=== PATIENT | female | born 1940 | race Caucasian/White ===

== ENCOUNTER → 2016-12-29 | Outpatient (CLI) | payer MEDICARE ==
[~2016-12-29] VITALS: Ht 177.8 cm; Wt 100.9 kg
[~2016-12-29] MED LIST: ALPHA LIPOIC A600 MG PO; ATHLETE'S FOOT1% TP; BIOTIN5000 MCG PO; CHONDROITIN SU250 M1 PO; COQ1050 MG PO; GLIPIZIDE AND M1 TA2 PO; GLUCOSAMINE PO; L-CARNITINE250 M1; LISINOPRIL AND1 TA2 PO; MAGNESIUM OXID500 M1 PO; MILK THISTLE1 POW; OLIVE LEAF EXT250 MG PO; OMEGA 3-6-9 11200 MG PO; ONE-A-DAY ESSE1 EACH PO; THE MEDICINE S300 M1 PO; ZYLOPRIM 100MG100 MG PO; [UNRECOGNIZED DRUG - OTHER]; [UNRECOGNIZED DRUG - OTHER] PO
[2016-12-29 10:19] VITALS: BP 112/64
== END ==
LOC: AMSURD 09:29
DX: E11.9 Type 2 diabetes mellitus without complications (principal); R20.2 Paresthesia of skin; E78.2 Mixed hyperlipidemia; K90.89 Other intestinal malabsorption

== ENCOUNTER → 2020-01-09 | Outpatient (CLI) | payer MEDICARE ==
[2016-12-29 10:19] VITALS: BP 112/64
== END ==
LOC: MAMMO 10:19
DX: Z13.820 Encounter for screening for osteoporosis (principal)

== ENCOUNTER → 2021-07-29 | Outpatient (CLI) | payer MEDICARE ==
[2021-07-29 07:34] LABS: POTASSIUM 3.9 mmol/L (3.5-5.1)
[2021-07-29 07:35] LABS: ALBUMIN 4.3 g/dL (3.4-4.8)
[2021-07-29 07:36] LABS: CALCIUM 9.8 mg/dL (8.3-10.5)
[2021-07-29 07:37] LABS: BASO # 0.05 K/mm3 (0.02-0.10); EOS # 0.44 K/mm3 (0.04-0.40); HEMOGLOBIN 13.4 g/dL (12.5-16.0); LYMPH# 3.82 K/mm3 (1.50-4.00); MEAN CELL VOLUME 89 fl (78-100); MEAN CORPUSCULAR HEMOGLOBIN 29 pg (27-31); MEAN CORPUSCULAR HGB CONC 33 g/dL (33-37); MEAN PLATELET VOLUME 10.3 fl (7.4-10.4); MONO # 0.79 K/mm3 (0.20-0.80); NEU # 5.98 K/mm3 (1.40-6.50); PLATELET COUNT 329 K/mm3 (130-400); RED CELL DISTRIBUTION WIDTH 13.2 % (11.5-14.5); TOTAL PROTEIN 7.3 g/dL (6.2-8.1); WHITE BLOOD COUNT 11.1 K/mm3 (4.8-10.8)
[2021-07-29 07:39] LABS: TOTAL BILIRUBIN 0.7 mg/dL (0.2-1.2)
== END ==
LOC: LAB 06:57
PROVIDERS: Family Medicine
DX: E11.9 Type 2 diabetes mellitus without complications (principal); E78.5 Hyperlipidemia, unspecified; E55.9 Vitamin D deficiency, unspecified

== ENCOUNTER → 2022-01-27 | Outpatient (CLI) | payer MEDICARE ==
[2022-01-27 08:34] LABS: BASO # 0.05 K/mm3 (0.02-0.10); EOS # 0.58 K/mm3 (0.04-0.40); EOS % 4.8 % (1.0-5.0); HEMATOCRIT 40.3 % (37.0-47.0); HEMOGLOBIN 13.4 g/dL (12.5-16.0); LYMPH# 3.35 K/mm3 (1.50-4.00); MEAN CELL VOLUME 88 fl (78-100); MEAN CORPUSCULAR HEMOGLOBIN 29 pg (27-31); MEAN CORPUSCULAR HGB CONC 33 g/dL (33-37); MEAN PLATELET VOLUME 10.5 fl (7.4-10.4); MONO # 0.82 K/mm3 (0.20-0.80); NEU # 7.13 K/mm3 (1.40-6.50); PLATELET COUNT 275 K/mm3 (130-400); RED BLOOD COUNT 4.59 M/mm3 (4.10-5.30); RED CELL DISTRIBUTION WIDTH 13.8 % (11.5-14.5)
[2022-01-27 08:44] LABS: ALBUMIN 4.3 g/dL (3.4-4.8); POTASSIUM 3.5 mmol/L (3.5-5.1)
[2022-01-27 09:06] LABS: CALCIUM 9.8 mg/dL (8.3-10.5)
[2022-01-27 09:08] LABS: TOTAL PROTEIN 7.2 g/dL (6.2-8.1)
[2022-01-27 09:09] LABS: TOTAL BILIRUBIN 0.8 mg/dL (0.2-1.2)
[2022-01-28 14:27] LABS: MAGNESIUM 1.75 mg/dL (1.60-2.60)
== END ==
LOC: LAB 08:09
PROVIDERS: Family Medicine
DX: E11.9 Type 2 diabetes mellitus without complications (principal); M19.90 Unspecified osteoarthritis, unspecified site; I10 Essential (primary) hypertension; E66.9 Obesity, unspecified; M10.9 Gout, unspecified; E78.5 Hyperlipidemia, unspecified; E55.9 Vitamin D deficiency, unspecified

== ENCOUNTER 2022-05-16 08:00 | Outpatient (RCR) | payer MEDICARE | END 2022-06-13 | disposition still patient (30) | LOC: PT | DX: M19.90 Unspecified osteoarthritis, unspecified site (principal) ==

== ENCOUNTER → 2022-06-22 | Outpatient (CLI) | payer MEDICARE | LOC: RAD 08:45 | DX: M25.551 Pain in right hip (principal) ==

== ENCOUNTER → 2023-05-29 | Outpatient (CLI) | payer MEDICARE | LOC: LAB 08:38 | DX: E11.9 Type 2 diabetes mellitus without complications (principal); E78.5 Hyperlipidemia, unspecified ==

== ENCOUNTER → 2023-11-06 | Outpatient (CLI) | payer MEDICARE ==
[2023-11-06 07:15] LABS: BASO # 0.03 K/mm3 (0.02-0.10); EOS # 0.38 K/mm3 (0.04-0.40); EOS % 3.8 % (1.0-5.0); HEMATOCRIT 41.1 % (37.0-47.0); HEMOGLOBIN 13.3 g/dL (12.5-16.0); LYMPH# 3.03 K/mm3 (1.50-4.00); MEAN CELL VOLUME 87 fl (78-100); MEAN CORPUSCULAR HEMOGLOBIN 28 pg (27-31); MEAN CORPUSCULAR HGB CONC 32 g/dL (33-37); MEAN PLATELET VOLUME 9.6 fl (7.4-10.4); NEU # 5.86 K/mm3 (1.40-6.50); PLATELET COUNT 326 K/mm3 (130-400); RED BLOOD COUNT 4.73 M/mm3 (4.10-5.30); RED CELL DISTRIBUTION WIDTH 13.3 % (11.5-14.5); WHITE BLOOD COUNT 10.1 K/mm3 (4.8-10.8)
[2023-11-06 07:20] LABS: ALBUMIN 4.2 g/dL (3.4-4.8)
[2023-11-06 07:22] LABS: TOTAL PROTEIN 7.1 g/dL (6.2-8.1)
[2023-11-06 07:24] LABS: TOTAL BILIRUBIN 0.6 mg/dL (0.2-1.2)
== END ==
LOC: LAB 07:02
PROVIDERS: Nurse Practitioner
DX: E11.9 Type 2 diabetes mellitus without complications (principal); E78.5 Hyperlipidemia, unspecified

== ENCOUNTER → 2023-12-21 | Outpatient (CLI) | payer MEDICARE | LOC: AMSURD 10:20 | DX: M86.8X7 Other osteomyelitis, ankle and foot (principal) ==

== ENCOUNTER → 2024-01-03 | Outpatient (CLI) | payer MEDICARE | LOC: RAD 01-02 09:31 | DX: L97.509 Non-pressure chronic ulcer of other part of unspecified foot with unspecified severity (principal) ==

== ENCOUNTER → 2024-01-05 | Outpatient (CLI) | payer MEDICARE ==
[2024-02-26 11:56] LABS: ALBUMIN 4.4 g/dL (3.4-4.8); CALCIUM 9.9 mg/dL (8.3-10.5); TOTAL BILIRUBIN 0.5 mg/dL (0.2-1.2); TOTAL PROTEIN 7.2 g/dL (6.2-8.1)
[2024-02-26 12:10] LABS: BASO # 0.02 K/mm3 (0.02-0.10); EOS # 0.36 K/mm3 (0.04-0.40); EOS % 3.6 % (1.0-5.0); HEMATOCRIT 40.9 % (37.0-47.0); HEMOGLOBIN 13.3 g/dL (12.5-16.0); LYMPH# 3.24 K/mm3 (1.50-4.00); MEAN CELL VOLUME 88 fl (78-100); MEAN CORPUSCULAR HEMOGLOBIN 29 pg (27-31); MEAN CORPUSCULAR HGB CONC 33 g/dL (33-37); MEAN PLATELET VOLUME 9.9 fl (7.4-10.4); MONO # 0.88 K/mm3 (0.20-0.80); NEU # 5.45 K/mm3 (1.40-6.50); PLATELET COUNT 326 K/mm3 (130-400); RED BLOOD COUNT 4.67 M/mm3 (4.10-5.30); RED CELL DISTRIBUTION WIDTH 13.1 % (11.5-14.5)
== END ==
LOC: LAB 12:30
PROVIDERS: Nurse Practitioner
DX: M86.9 Osteomyelitis, unspecified (principal)

== ENCOUNTER → 2024-01-08 | Outpatient (CLI) | payer MEDICARE | LOC: LAB 07:28 | DX: M86.8X7 Other osteomyelitis, ankle and foot (principal) ==

== ENCOUNTER → 2024-01-12 | Outpatient (CLI) | payer MEDICARE ==
[~2024-01-12] MED LIST changes: +Gadoterate 20 ML VIAL IV ONE; +NS 100 ML IV ONE
== END ==
LOC: RAD 09:08
DX: M86.9 Osteomyelitis, unspecified (principal)
CPT/HCPCS: A9575

== ENCOUNTER → 2024-01-12 | Outpatient (CLI) | payer MEDICARE ==
[~2024-01-12] MED LIST changes: -Gadoterate 20 ML VIAL IV ONE; -NS 100 ML IV ONE
== END ==
LOC: LAB 08:00
DX: M86.8X7 Other osteomyelitis, ankle and foot (principal)

== ENCOUNTER → 2024-01-24 | Outpatient (CLI) | payer MEDICARE | LOC: LAB 18:53 | DX: M86.9 Osteomyelitis, unspecified (principal) ==

== ENCOUNTER → 2024-01-26 | Outpatient (CLI) | payer MEDICARE | LOC: LAB 07:55 | DX: M86.172 Other acute osteomyelitis, left ankle and foot (principal) ==

== ENCOUNTER → 2024-02-02 | Outpatient (CLI) | payer MEDICARE | LOC: LAB 07:24 | DX: M86.8X7 Other osteomyelitis, ankle and foot (principal) ==

== ENCOUNTER → 2024-02-09 | Outpatient (CLI) | payer MEDICARE | LOC: LAB 07:55 | DX: E11.9 Type 2 diabetes mellitus without complications (principal); E55.9 Vitamin D deficiency, unspecified ==

== ENCOUNTER → 2024-05-10 | Outpatient (CLI) | payer MEDICARE ==
[2024-05-10 09:45] LABS: ALBUMIN 4.6 g/dL (3.4-4.8)
[2024-05-10 09:47] LABS: CALCIUM 10.2 mg/dL (8.3-10.5)
[2024-05-10 09:48] LABS: TOTAL PROTEIN 7.4 g/dL (6.2-8.1)
[2024-05-10 09:50] LABS: TOTAL BILIRUBIN 0.6 mg/dL (0.2-1.2)
== END ==
LOC: LAB 09:21
PROVIDERS: Nurse Practitioner
DX: I10 Essential (primary) hypertension (principal); E11.9 Type 2 diabetes mellitus without complications

== ENCOUNTER → 2024-06-06 | Outpatient (CLI) | payer MEDICARE ==
[2024-06-06 15:22] LABS: BASO # 0.04 K/mm3 (0.02-0.10); EOS # 0.39 K/mm3 (0.04-0.40); EOS % 3.2 % (1.0-5.0); HEMATOCRIT 40.9 % (37.0-47.0); HEMOGLOBIN 13.5 g/dL (12.5-16.0); LYMPH# 3.35 K/mm3 (1.50-4.00); MEAN CELL VOLUME 88 fl (78-100); MEAN CORPUSCULAR HEMOGLOBIN 29 pg (27-31); MEAN CORPUSCULAR HGB CONC 33 g/dL (33-37); MONO # 0.78 K/mm3 (0.20-0.80); NEU # 7.66 K/mm3 (1.40-6.50); PLATELET COUNT 290 K/mm3 (130-400); RED BLOOD COUNT 4.67 M/mm3 (4.10-5.30); RED CELL DISTRIBUTION WIDTH 13.1 % (11.5-14.5); WHITE BLOOD COUNT 12.3 K/mm3 (4.8-10.8)
[2024-06-06 15:29] LABS: ALBUMIN 4.4 g/dL (3.4-4.8)
[2024-06-06 15:30] LABS: CALCIUM 10.1 mg/dL (8.3-10.5)
[2024-06-06 15:31] LABS: TOTAL PROTEIN 7.3 g/dL (6.2-8.1)
[2024-06-06 15:33] LABS: TOTAL BILIRUBIN 0.4 mg/dL (0.2-1.2)
== END ==
LOC: LAB 15:07
PROVIDERS: Nurse Practitioner
DX: S61.201A Unspecified open wound of left index finger without damage to nail, initial encounter (principal); X58.XXXA Exposure to other specified factors, initial encounter

== ENCOUNTER → 2024-06-12 | Outpatient (CLI) | payer MEDICARE ==
[~2024-06-12] VITALS: Ht 177.8 cm; Wt 100.9 kg
[~2024-06-12] MED LIST changes: +CEPHALEXIN500 M1 PO; +TRULICITY4.5 MG/0.5 SQ
[2024-06-12 13:20] VITALS: BP 128/80
== END ==
LOC: AMSURD 12:54
DX: S61.201A Unspecified open wound of left index finger without damage to nail, initial encounter (principal)
CPT/HCPCS: 18895; A6021

== ENCOUNTER 2024-07-31 12:46 | Emergency (ER) | payer MEDICARE ==
[~2024-07-31] VITALS: Ht 182.9 cm; Wt 88.7 kg
[2024-07-31] MEDS ORDERED: LOSARTAN POTASS1 TA2 (14:52)
[2024-07-31 16:01] VITALS: BP 140/80
[2024-08-01] MEDS ORDERED: GLUCOPHAGE PO (16:19)
[2024-08-01] MEDS ORDERED: COZAAR100 MG PO (16:41)
[2024-08-01] MEDS ORDERED: HCTZ 25MG25 MG PO (16:42)
== END 2024-07-31 15:58 | disposition home or self-care (01) ==
LOC: ED 12:46
DX: S00.81XA Abrasion of other part of head, initial encounter (principal); M79.642 Pain in left hand; M25.562 Pain in left knee; M25.512 Pain in left shoulder; W19.XXXA Unspecified fall, initial encounter; W22.8XXA Striking against or struck by other objects, initial encounter; Y92.481 Parking lot as the place of occurrence of the external cause

== ENCOUNTER 2024-08-01 16:02 | Inpatient (IN) | payer MEDICARE ==
[~2024-08-01] VITALS: Ht 182.9 cm; Wt 89.4 kg
[~2024-08-01 16:02] MED LIST changes: +LOSARTAN POTASS1 TA2
[2024-08-01] MEDS ORDERED: GLUCOPHAGE PO (16:19)
[2024-08-01 16:39] VITALS: BP 156/68
[2024-08-01] MEDS ORDERED: COZAAR100 MG PO (16:41)
[2024-08-01] MEDS ORDERED: HCTZ 25MG25 MG PO (16:42)
[2024-08-01] MEDS ORDERED: NS & 20mEq KCl 1,000 ML IV SCH (16:45)
--- NOTE | 2024-08-01 17:21 | NUR ---
PATIENT ADMITTED FROM ED FOR RECURRING FALLS. DENIES ANY CURRENT PAIN. A&OX4. MULTIPLE ABRASIONS FROM RECENT FALLS, SEE ASSESSMENT. BLOOD GLUCOSE 229. X1 ASSIST WITH GAIT BELT AND WHEELED WALKER, MULTIPLE CUES NEEDED TO STAND PROPERLY WITH WALKER. SHUFFLED GAIT. PLAN OF CARE REVIEWED WITH PATIENT. PATIENT REPORTS TAKING TRULICITY ON WEDNESDAYS BUT MISSED DOSE YESTERDAY. POOR HISTORIAN, UNABLE TO PROVIDE ACCURATE HOME MEDICATION LIST. PATIENT SITTING IN RECLINER EATING DINNER, LUE ELEVATED. CHAIR ALARMED, CALL LIGHT WITHIN REACH.
--- NOTE | 2024-08-01 18:41 | NUR ---
REPORT TO JOBY ROSE.
[2024-08-01 19:56] VITALS: BP 134/76
[2024-08-01] MEDS ORDERED: Acetaminophen 325 MG TAB PO PRN (20:30)
--- NOTE | 2024-08-01 20:30 | NUR ---
Patient resting in bed. Alert and oriented. Tylenol reviewed and given for LUE and hand pain. Remains swollen and bruised. Cap refill < 3 and pulse strone LUE. Elevated on pillow.
[2024-08-01 23:37] VITALS: BP 117/67
[2024-08-02 02:46] VITALS: BP 116/74
[2024-08-02] MEDS ORDERED: NS 1,000 ML IV SCH (05:00)
--- NOTE | 2024-08-02 07:00 | NUR ---
RESUMED CARE FROM JOBY ROSE.
[2024-08-02 07:10] VITALS: BP 138/85
[2024-08-02] MEDS ORDERED: metFORMIN 500 MG TAB PO SCH (07:30)
[2024-08-02] MEDS ORDERED: Insulin Lispro (HumaLOG) SQ SCH (08:00)
[2024-08-02 08:53] LABS: ALBUMIN 3.7 g/dL (3.4-4.8)
[2024-08-02 08:55] LABS: CALCIUM 8.9 mg/dL (8.3-10.5)
[2024-08-02 08:56] LABS: TOTAL PROTEIN 6.2 g/dL (6.2-8.1)
[2024-08-02 08:58] LABS: TOTAL BILIRUBIN 1.3 mg/dL (0.2-1.2)
[2024-08-02 08:59] LABS: BASO # 0.01 K/mm3 (0.02-0.10); EOS # 0.05 K/mm3 (0.04-0.40); EOS % 0.3 % (1.0-5.0); HEMATOCRIT 34.8 % (37.0-47.0); HEMOGLOBIN 11.5 g/dL (12.5-16.0); LYMPH# 1.93 K/mm3 (1.50-4.00); MEAN CELL VOLUME 87 fl (78-100); MEAN CORPUSCULAR HEMOGLOBIN 29 pg (27-31); MEAN CORPUSCULAR HGB CONC 33 g/dL (33-37); MEAN PLATELET VOLUME 10.5 fl (7.4-10.4); MONO # 1.24 K/mm3 (0.20-0.80); NEU # 11.09 K/mm3 (1.40-6.50); PLATELET COUNT 223 K/mm3 (130-400); RED BLOOD COUNT 3.98 M/mm3 (4.10-5.30); RED CELL DISTRIBUTION WIDTH 13.2 % (11.5-14.5); WHITE BLOOD COUNT 14.4 K/mm3 (4.8-10.8)
[2024-08-02] MEDS ORDERED: cefTRIAXone 1 G in Water For Injection,Sterile 10 ML IV SCH (09:00)
[2024-08-02] MEDS ORDERED: Pantoprazole 40 MG in NS 10 ML IV SCH (09:00)
[2024-08-02 11:14] VITALS: BP 175/81
--- NOTE | 2024-08-02 13:42 | NUR ---
Spoke with Aubree and her son Luis. They are agreeing to stay until medically ready for discharge. Aubree does not want to stay in [facility]. She wants to go home and stay with her son for a while. Her son, Luis would like home health. Aubree states she would like [facility]. Face to Face, Order and [facility] faxed to [facility] . Gave [facility] information to Luis
[2024-08-02 16:09] VITALS: BP 143/72
--- NOTE | 2024-08-02 16:15 | NUR ---
PATIENT RESTING IN BED, LEANING TOWARDS RIGHT SIDE WITH SON AT BEDSIDE. THIS RN ASSISTED PATIENT SUPINE AND PLACED PILLOW ON RIGHT SIDE. PATIENT FELT WARM, TEMPERATURE TAKEN 99.0. TYLENOL PROVIDED AND DR. EDWARDS AND YANETH ANDREWS NOTIFIED OF PATIENT STATUS. NEW ORDERS OBTAINED.
[2024-08-02 16:26] LABS: BASO # 0.01 K/mm3 (0.02-0.10); EOS # 0.01 K/mm3 (0.04-0.40); EOS % 0.1 % (1.0-5.0); HEMATOCRIT 33.4 % (37.0-47.0); LYMPH# 1.72 K/mm3 (1.50-4.00); MEAN CELL VOLUME 88 fl (78-100); MEAN CORPUSCULAR HEMOGLOBIN 29 pg (27-31); MEAN CORPUSCULAR HGB CONC 33 g/dL (33-37); MEAN PLATELET VOLUME 10.1 fl (7.4-10.4); PLATELET COUNT 221 K/mm3 (130-400); RED BLOOD COUNT 3.79 M/mm3 (4.10-5.30); RED CELL DISTRIBUTION WIDTH 13.1 % (11.5-14.5); WHITE BLOOD COUNT 16.8 K/mm3 (4.8-10.8)
[2024-08-02 16:31] LABS: ALBUMIN 3.5 g/dL (3.4-4.8)
[2024-08-02 16:33] LABS: CALCIUM 8.6 mg/dL (8.3-10.5)
[2024-08-02 16:34] LABS: TOTAL PROTEIN 5.9 g/dL (6.2-8.1)
[2024-08-02] MEDS ORDERED: Potassium Chloride 100 ML IV SCH (16:45)
[2024-08-02] MEDS ORDERED: Piperacillin/Tazobactam Sodium 3.375 GM in NS 100 ML IV SCH (17:15)
[2024-08-02] MEDS ORDERED: Vancomycin 1 G in NS 250 ML IV SCH ×2 (17:15→17:30)
--- NOTE | 2024-08-02 18:49 | NUR ---
REPORT TO JOBY ROSE.
[2024-08-02 19:00] VITALS: BP 167/90
--- NOTE | 2024-08-02 20:00 | NUR ---
Patient resting in bed and IV LAC retaped for comfort. Potassium infusing without problems. LUE elevated on pillow.
[2024-08-02 23:12] VITALS: BP 150/89
[2024-08-03 03:29] VITALS: BP 135/77
--- NOTE | 2024-08-03 06:07 | NUR ---
Reports yes to sleeping this noc.
[2024-08-03 07:15] VITALS: BP 159/77
[2024-08-03 07:37] LABS: BASO # 0.02 K/mm3 (0.02-0.10); EOS # 0.09 K/mm3 (0.04-0.40); EOS % 0.6 % (1.0-5.0); HEMATOCRIT 32.2 % (37.0-47.0); HEMOGLOBIN 11.2 g/dL (12.5-16.0); MEAN CELL VOLUME 88 fl (78-100); MEAN CORPUSCULAR HEMOGLOBIN 31 pg (27-31); MEAN CORPUSCULAR HGB CONC 35 g/dL (33-37); MEAN PLATELET VOLUME 10.2 fl (7.4-10.4); MONO # 1.34 K/mm3 (0.20-0.80); PLATELET COUNT 199 K/mm3 (130-400); RED BLOOD COUNT 3.67 M/mm3 (4.10-5.30); RED CELL DISTRIBUTION WIDTH 13.1 % (11.5-14.5); WHITE BLOOD COUNT 15.1 K/mm3 (4.8-10.8)
[2024-08-03 07:45] LABS: ALBUMIN 3.3 g/dL (3.4-4.8)
[2024-08-03 07:47] LABS: CALCIUM 8.8 mg/dL (8.3-10.5)
[2024-08-03 07:48] LABS: TOTAL PROTEIN 5.9 g/dL (6.2-8.1)
[2024-08-03 07:50] LABS: TOTAL BILIRUBIN 1.4 mg/dL (0.2-1.2)
[2024-08-03 11:13] VITALS: BP 154/75
[2024-08-03] MEDS ORDERED: Potassium Bicarbonate/Citrate 20 MEQ Effervescent TAB PO SCH (11:47)
[2024-08-03] MEDS ORDERED: HYDROcodone/Acetaminophen 7.5-325 MG TAB PO PRN (12:00)
--- NOTE | 2024-08-03 13:51 | NUR ---
Dr. Dong at bedside.
[2024-08-03 14:51] VITALS: BP 148/78
--- NOTE | 2024-08-03 19:17 | NUR ---
RECEIVED REPORT FROM JOBY MICHELLE
[2024-08-03 19:54] VITALS: BP 136/79
--- NOTE | 2024-08-03 23:00 | NUR ---
PATIENT RESTING IN BED. WAKES EASILY TO VERBAL STIMULI. DENIES PAIN OR DISCOMFORT. CALL LIGHT IN REACH. BED ALARM ON
[2024-08-03 23:18] VITALS: BP 149/78
--- NOTE | 2024-08-04 03:23 | NUR ---
PATIENT RESTING QUIETLY IN BED. BREATHING UNLABORED ON RA. LEFT ARM ELEVATED ON PILLOWS. CALL LIGHT IN REACH. BED ALARM ON
[2024-08-04 03:30] VITALS: BP 154/80
--- NOTE | 2024-08-04 05:33 | NUR ---
PATIENT WAKES EASILY WITH VERBAL STIMULI. ATB INFUSED PER ORDERS. IV POSITIONAL BUT FLUSHES AND RUNS. NO S/S INFILTRATION. LEFT ARM CONTINUES TO BE SWOLLEN, ELEVATED ON PILLOWS, DID NOT USE IV IN LEFT ARM. PATIENT DENIES PAIN OR DISCOMFORT. PUREWICK TO SUCTION DRAINING CLEAR YELLOW URINE. CALL LIGHT IN REACH. BED ALARM ON
--- NOTE | 2024-08-04 07:00 | NUR ---
REPORT RECEIVED FROM JOBY RASHEED
[2024-08-04 07:32] VITALS: BP 152/81
--- NOTE | 2024-08-04 07:35 | NUR ---
PATIENT RESTING IN BED WITH EYES OPEN, TV ON. PATIENT IS A&Ox4, PLEASENT, FORGETFUL. PATIENT STATES PAIN TO LUE 5/10; SWELLING NOTED TO LUE, BRUISING TO FINGERS, BACK OF HAND AND PALM NOTED TO L HAND. BRUSING NOTED TO BILAT KNEES, PATIENT STATES FROM FALLING. PATIENT WASHED FACE. ASSISTED TO CHIAR WITH WALKER AND 2x ASSIT. PATIENT DENIES OTHER NEEDS OR COMPLAINTS AT THIS TIME. CHAIR ALARMED, CALL LIGHT WITHIN REACH.
--- NOTE | 2024-08-04 10:50 | NUR ---
PATIENT C/O OF PAIN TO IV SITE IN LEFT AC. INT REMOVED AT THIS TIME DUE TO PAIN.
[2024-08-04 11:05] VITALS: BP 146/78
--- NOTE | 2024-08-04 11:35 | NUR ---
PROVIDER INTO SEE PATIENT. NEW ORDERS RECEIVED
--- NOTE | 2024-08-04 12:45 | NUR ---
SWELLING TO LEFT HAND HAS DECREASED. PATIENT STATES PAIN HAS IMPROVED TO LUE. PATIENT CONTIUES TO KEEP LUE ELEVATED ON PILLOW. DENIES OTHER NEEDS OR COMPLAINTS AT THIS TIME. CHAIR ALARM ON, CALL LIGHT WITHIN REACH
--- NOTE | 2024-08-04 13:09 | NUR ---
THIS RN TOOK REPORT FROM JOBY SIMS. PTS FAMILY PRESENT. PTS FAMILY LEFT THE FACILITY AT 1245. THIS NURSE ASKED PT ABOUT HER PAIN LEVEL. PT HAD BEEN RESTING WITH EYES CLOSED. SHE DENIES ANY PAIN AT THIS TIME.
[2024-08-04 14:49] VITALS: BP 160/90
[2024-08-04 19:00] VITALS: BP 148/74
--- NOTE | 2024-08-04 19:08 | NUR ---
REPORT GIVEN TO JOBY RASHEED
--- NOTE | 2024-08-04 19:17 | NUR ---
RESUMED CARE FROM PRECIA, RN
[2024-08-04 23:00] VITALS: BP 146/71
[2024-08-04] MEDS ORDERED: Ciprofloxacin 250 MG TAB PO ONE (23:45)
[2024-08-05 02:58] VITALS: BP 143/73
--- NOTE | 2024-08-05 05:35 | NUR ---
PATIENT A&O X 3. TRANSFERS WITH 1-2 ASSIST, DEPENDS HEAVILY ON STAFF ASSIST. OFFERED MULTIPLE TIMES TO WALK IN HALLS OR TO AND FROM TOILET, AND REFUSED. LEFT ARM WITH LESS SWELLILNG, PATIENT DENIES PAIN OR DISCOMFORT. USES CALL LIGHT APPROPRIATLY. BED ALARM ON.
[2024-08-05 07:24] VITALS: BP 162/84
[2024-08-05] MEDS ORDERED: Ciprofloxacin 250 MG TAB PO SCH (09:00)
[2024-08-05 11:12] VITALS: BP 156/84
[2024-08-05 15:28] VITALS: BP 156/82
--- NOTE | 2024-08-05 17:44 | NUR ---
PATIENT HAS BEEN PLEASENT AND COOPERATIVE THIS SHIFT. SHE IS BEING DISCHARGED 08/06/24. HER LEFT ARM IS SWOLLEN AND WARM. DR. EDWARDS WENT AND SPOKE WITH PATIENT AND STATES THAT HER ARM LOOKS BETTER THAN IT DID WHEN SHE CAME IN. PATIENT DENIES PAIN AND IS ABLE TO MOVE ARM WITHOUT DIFFICULTY. SHE REFUSED HER LOVENOX THIS AM STATING SHE DID NOT WANT ANY BLOOD THINNER. THERE IS A WHITE THICK COATING ON HER UVULA. AWARE,WILL TREAT AND FOLLOW UP OUTPATIENT. PATIENT IS SITTING IN RECLINER WATCHING TV AT THIS TIME.
[2024-08-05 19:00] VITALS: BP 156/82
--- NOTE | 2024-08-05 19:50 | NUR ---
PT A&OX4. AMBULATES WITH WALKER X2. LUNGS CLEAR. ABD SOFT AND NON TENDER. DENIES PAIN. SWELLING NOTED TO LEFT ARM AND RIGHT HAND. COMPRESSION GLOVE ON TO LEFT HAND.
[2024-08-05 22:38] VITALS: BP 155/77
[2024-08-06 02:56] VITALS: BP 144/74
[2024-08-06 07:23] LABS: BASO # 0.03 K/mm3 (0.02-0.10); EOS # 0.33 K/mm3 (0.04-0.40); EOS % 2.7 % (1.0-5.0); HEMATOCRIT 33.8 % (37.0-47.0); HEMOGLOBIN 11.1 g/dL (12.5-16.0); LYMPH# 1.79 K/mm3 (1.50-4.00); MEAN CELL VOLUME 87 fl (78-100); MEAN CORPUSCULAR HEMOGLOBIN 29 pg (27-31); MEAN CORPUSCULAR HGB CONC 33 g/dL (33-37); MEAN PLATELET VOLUME 9.7 fl (7.4-10.4); MONO # 1.29 K/mm3 (0.20-0.80); NEU # 8.75 K/mm3 (1.40-6.50); RED BLOOD COUNT 3.88 M/mm3 (4.10-5.30); RED CELL DISTRIBUTION WIDTH 12.8 % (11.5-14.5); WHITE BLOOD COUNT 12.2 K/mm3 (4.8-10.8)
[2024-08-06 07:28] LABS: PLATELET COUNT 310 K/mm3 (130-400)
[2024-08-06 07:29] LABS: ALBUMIN 3.4 g/dL (3.4-4.8)
[2024-08-06 07:30] LABS: CALCIUM 9.3 mg/dL (8.3-10.5)
[2024-08-06 07:32] LABS: TOTAL PROTEIN 6.4 g/dL (6.2-8.1)
[2024-08-06 07:33] LABS: TOTAL BILIRUBIN 0.8 mg/dL (0.2-1.2)
[2024-08-06 08:21] VITALS: BP 165/76
[2024-08-06] MEDS ORDERED: FLUCONAZOLE50 MG PO (08:33)
[2024-08-06] MEDS ORDERED: CIPRO250 M1 PO (08:34)
--- NOTE | 2024-08-06 10:05 | NUR ---
0955 PT DISCHARGED. D/C INSTRUCTIONS REVIEWED WITH THE PT AND THE SON, BOTH VERBALIZE UNDERSTANDING. PT WALKED OUT WITH STANDBY ASSIST USING HER WALKER. PT ASSISTED INTO VEHICLE WITHOUT DIFFICULTY.
== END 2024-08-06 09:55 | disposition home or self-care (01) | DRG 690 ==
LOC: MED/SURG 16:02
PROVIDERS: Family Medicine; Nurse Practitioner; ADMIT Family Medicine
DX: N39.0 Urinary tract infection, site not specified (principal); M62.82 Rhabdomyolysis; S60.222A Contusion of left hand, initial encounter; W18.30XA Fall on same level, unspecified, initial encounter; E11.42 Type 2 diabetes mellitus with diabetic polyneuropathy; I10 Essential (primary) hypertension; E55.9 Vitamin D deficiency, unspecified; M10.9 Gout, unspecified; R29.6 Repeated falls; Z79.84 Long term (current) use of oral hypoglycemic drugs; E87.6 Hypokalemia
CPT/HCPCS: J0696; J1650; J1815; J2470; J2543; J3370; J3480; J7030; J7050

== ENCOUNTER → 2024-08-21 | Outpatient (CLI) | payer MEDICARE ==
[~2024-08-21] MED LIST changes: +CIPRO250 M1 PO; +COZAAR100 MG PO; +FLUCONAZOLE50 MG PO; +GLUCOPHAGE PO; +HCTZ 25MG25 MG PO
[2024-08-21 13:00] LABS: URINE WBC 0 /hpf (0-3)
[2024-08-21 13:29] LABS: BASO # 0.02 K/mm3 (0.02-0.10); EOS # 0.11 K/mm3 (0.04-0.40); EOS % 0.6 % (1.0-5.0); HEMOGLOBIN 12.4 g/dL (12.5-16.0); MEAN CELL VOLUME 87 fl (78-100); MEAN CORPUSCULAR HEMOGLOBIN 28 pg (27-31); MEAN CORPUSCULAR HGB CONC 32 g/dL (33-37); MEAN PLATELET VOLUME 9.6 fl (7.4-10.4); MONO # 1.44 K/mm3 (0.20-0.80); NEU # 14.05 K/mm3 (1.40-6.50); PLATELET COUNT 617 K/mm3 (130-400); RED BLOOD COUNT 4.48 M/mm3 (4.10-5.30); WHITE BLOOD COUNT 18.5 K/mm3 (4.8-10.8)
[2024-08-21 13:33] LABS: ALBUMIN 4.2 g/dL (3.4-4.8)
[2024-08-21 13:34] LABS: CALCIUM 10.5 mg/dL (8.3-10.5)
[2024-08-21 13:35] LABS: TOTAL PROTEIN 7.7 g/dL (6.2-8.1)
[2024-08-21 13:37] LABS: TOTAL BILIRUBIN 0.9 mg/dL (0.2-1.2)
[2024-08-21 14:05] LABS: URINE APPEARANCE CLEAR (CLEAR); URINE COLOR YELLOW (YELLOW)
[2024-08-21 14:06] LABS: PH-URINE 5.5 (5.0 - 8.0); URINE BILIRUBIN NEGATIVE (NEGATIVE); URINE BLOOD NEGATIVE (NEGATIVE); URINE GLUCOSE NEGATIVE (NEGATIVE); URINE KETONE TRACE (NEGATIVE); URINE LEUKOCYTE ESTERASE NEGATIVE (NEGATIVE); URINE MUCUS PRESENT (NOT PRESENT); URINE NITRATE NEGATIVE (NEGATIVE); URINE PROTEIN(semi-quant) 1+ (NEGATIVE)
== END ==
LOC: LAB 12:30
PROVIDERS: Nurse Practitioner
DX: N39.0 Urinary tract infection, site not specified (principal); S91.001D Unspecified open wound, right ankle, subsequent encounter; R09.89 Other specified symptoms and signs involving the circulatory and respiratory systems; W19.XXXD Unspecified fall, subsequent encounter

== ENCOUNTER → 2024-08-30 | Outpatient (CLI) | payer MEDICARE ==
[~2024-08-30] VITALS: Ht 182.9 cm; Wt 89.4 kg
[~2024-08-30] MED LIST changes: +Lidocaine 2% Jelly 5 GM TUBE TOP ONE
[2024-08-30 11:58] VITALS: BP 149/79
--- NOTE | 2024-08-30 12:09 | NUR ---
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 [facility] HAS BEEN CHANGING HER DRESSING EVERY OTHER DAY. CURRENT DRESSING HAS NO DRAINAGE. WOUND BED COVERED WITH THICK LAYER OF YELLOW SLOUGH. NUMBED AREA WITH 2% LIDOCAINE JELLY PRIOR TO DEBRIDEMENT BY Igor ESCOBAR APRN. AFTER DEBRIDING, WOUND IS CLEANED WITH HIBICLENS AND JET LAVAGE WITH STERILE WATER. PATTED DRY. SKIN PREPPED AROUND WOUND AND COLLAGEN APPLIED TO WOUND BED, COVERED WITH MEPILEX BORDER FOAM. SUPPLIES AND INSTRUCTIOS SENT WITH PATIENT TO GIVE TO HOME HEALTH NURSE WHO WILL CHANGE DRESSING ON MONDAY AND MONDAY. PT WILL RETURN TO WOUND CLINIC ON MONDAY AT 10AM.
== END ==
LOC: WOUND 11:43
DX: S91.001D Unspecified open wound, right ankle, subsequent encounter (principal)
CPT/HCPCS: 18895; A6021

== ENCOUNTER → 2024-09-06 | Outpatient (CLI) | payer MEDICARE ==
[~2024-09-06] MED LIST changes: -Lidocaine 2% Jelly 5 GM TUBE TOP ONE
== END ==
LOC: RAD 12:10
DX: M25.512 Pain in left shoulder (principal)

== ENCOUNTER → 2024-09-06 | Outpatient (CLI) | payer MEDICARE ==
[~2024-09-06] VITALS: Ht 182.9 cm; Wt 89.4 kg
[~2024-09-06] MED LIST changes: +Lidocaine 2% Jelly 5 GM TUBE TOP ONE
[2024-09-06 10:07] VITALS: BP 163/88
== END ==
LOC: WOUND 09:45
DX: S91.001D Unspecified open wound, right ankle, subsequent encounter (principal)
CPT/HCPCS: 18886; 18897; 19064; A6248; A6261

== ENCOUNTER → 2024-09-06 | Outpatient (CLI) | payer MEDICARE ==
[~2024-09-06] MED LIST changes: -Lidocaine 2% Jelly 5 GM TUBE TOP ONE
[2024-09-06 11:10] LABS: BASO # 0.03 K/mm3 (0.02-0.10); EOS # 0.04 K/mm3 (0.04-0.40); EOS % 0.2 % (1.0-5.0); HEMOGLOBIN 11.1 g/dL (12.5-16.0); MEAN CELL VOLUME 86 fl (78-100); MEAN CORPUSCULAR HEMOGLOBIN 27 pg (27-31); MEAN CORPUSCULAR HGB CONC 32 g/dL (33-37); MEAN PLATELET VOLUME 9.9 fl (7.4-10.4); MONO # 1.33 K/mm3 (0.20-0.80); NEU # 12.76 K/mm3 (1.40-6.50); PLATELET COUNT 305 K/mm3 (130-400); RED BLOOD COUNT 4.05 M/mm3 (4.10-5.30); RED CELL DISTRIBUTION WIDTH 14.1 % (11.5-14.5); WHITE BLOOD COUNT 16.1 K/mm3 (4.8-10.8)
[2024-09-06 11:13] LABS: ALBUMIN 3.6 g/dL (3.4-4.8)
[2024-09-06 11:15] LABS: CALCIUM 9.9 mg/dL (8.3-10.5)
[2024-09-06 11:16] LABS: TOTAL PROTEIN 7.6 g/dL (6.2-8.1)
[2024-09-06 11:44] LABS: TOTAL BILIRUBIN 0.6 mg/dL (0.2-1.2)
[2024-09-06 13:21] LABS: URINE APPEARANCE SLIGHTLY CLOUDY (CLEAR); URINE COLOR DARK YELLOW (YELLOW)
[2024-09-06 13:22] LABS: PH-URINE 5.5 (5.0 - 8.0); URINE BILIRUBIN NEGATIVE (NEGATIVE); URINE BLOOD NEGATIVE (NEGATIVE); URINE GLUCOSE TRACE (NEGATIVE); URINE KETONE NEGATIVE (NEGATIVE); URINE LEUKOCYTE ESTERASE NEGATIVE (NEGATIVE); URINE NITRATE NEGATIVE (NEGATIVE); URINE PROTEIN(semi-quant) 2+ (NEGATIVE)
[2024-09-06 13:23] LABS: URINE MUCUS PRESENT (NOT PRESENT)
== END ==
LOC: LAB 09:52
PROVIDERS: Nurse Practitioner
DX: D72.829 Elevated white blood cell count, unspecified (principal); R53.81 Other malaise

== ENCOUNTER → 2024-09-13 | Outpatient (CLI) | payer MEDICARE ==
[~2024-09-13] VITALS: Ht 182.9 cm; Wt 89.4 kg
[2024-09-13 10:06] VITALS: BP 165/82
--- NOTE | 2024-09-13 10:07 | NUR ---
PATIENT HERE FOR WOUND CARE TO RIGHT LATERAL ANKLE. DRESSING CHANGES PERFORMED BY HOME HEALTH AND PATIENT SEEN BY WOUND CLINIC ON FRIDAYS. AREA CLEANSED WITH HIBICLENSE AND JET LAVAGE. DRIED WITH 4X4. PHOTOGRPAHS AND MEASUREMENTS TAKEN. LENGTH: 1.3CM WIDTH: 1.4CM. PATENT RESCHEDULED FOR NEXT WEDNESDAY 09/20. IODOSORB PLACED IN WOUND BED, COVERED WITH AQUACEL EXTRA, AND MEPILEX BORDER FOAM.
== END ==
LOC: WOUND 09:36
DX: S91.001D Unspecified open wound, right ankle, subsequent encounter (principal)
CPT/HCPCS: 18897

== ENCOUNTER → 2024-09-13 | Outpatient (CLI) | payer MEDICARE ==
[2024-09-13 10:16] LABS: BASO # 0.02 K/mm3 (0.02-0.10); EOS # 0.32 K/mm3 (0.04-0.40); EOS % 2.6 % (1.0-5.0); HEMATOCRIT 37.9 % (37.0-47.0); HEMOGLOBIN 12.2 g/dL (12.5-16.0); LYMPH# 2.98 K/mm3 (1.50-4.00); MEAN CELL VOLUME 86 fl (78-100); MEAN CORPUSCULAR HEMOGLOBIN 28 pg (27-31); MEAN CORPUSCULAR HGB CONC 32 g/dL (33-37); MEAN PLATELET VOLUME 9.3 fl (7.4-10.4); MONO # 0.77 K/mm3 (0.20-0.80); NEU # 8.35 K/mm3 (1.40-6.50); PLATELET COUNT 493 K/mm3 (130-400); RED BLOOD COUNT 4.42 M/mm3 (4.10-5.30); WHITE BLOOD COUNT 12.5 K/mm3 (4.8-10.8)
[2024-09-13 11:39] LABS: CALCIUM 10.1 mg/dL (8.3-10.5)
[2024-09-13 11:40] LABS: TOTAL PROTEIN 7.8 g/dL (6.2-8.1)
[2024-09-13 11:42] LABS: TOTAL BILIRUBIN 0.3 mg/dL (0.2-1.2)
== END ==
LOC: LAB 09:41
PROVIDERS: Nurse Practitioner
DX: D72.829 Elevated white blood cell count, unspecified (principal)

== ENCOUNTER → 2024-09-20 | Outpatient (CLI) | payer MEDICARE ==
[~2024-09-20] VITALS: Ht 182.9 cm; Wt 89.9 kg
--- NOTE | 2024-09-20 09:10 | NUR ---
Pt arrives for wound care to RIght lateral ankle. Home health seeing her to performed dressing changes M,W and pt seen by wound clinic on fridays. See Lilian Licona's note for details on wound care performed. Pt tolerated well. Pictures were taken of wounds this visit. Pt instructed by YANETH to leave drsg on monday. New instructions sent for wound care with pt to give to Home Health. Appt card given for next appt 09/27 at 0900 (requested 1000 but spot was already full). Pt leaves facility ambulatory with cane with steady gait. 6
[2024-09-20 09:26] VITALS: BP 158/83
--- NOTE | 2024-09-20 10:12 | NUR ---
[facility], agency notified that pt has new orders. Faxed orders to [phone] per lore's request.
== END ==
LOC: WOUND 09:08
DX: S91.001D Unspecified open wound, right ankle, subsequent encounter (principal); W19.XXXD Unspecified fall, subsequent encounter
CPT/HCPCS: 18895; 18897; A6021

== ENCOUNTER → 2024-11-01 | Outpatient (CLI) | payer MEDICARE | LOC: LAB 07:25 | DX: E11.9 Type 2 diabetes mellitus without complications (principal) ==